=== PATIENT | male | born 1955 | race Caucasian/White ===

== ENCOUNTER 2017-01-08 11:51 | Emergency (ER) | payer OTHER ==
[~2017-01-08] VITALS: Ht 175.3 cm; Wt 103.3 kg
[~2017-01-08 11:51] MED LIST: ATOR-24 PO; CMD5 PO; GLC500 PO; HYDC25 PO; INSUINJ4 SQ; MULT-506 PO; OXYC5TAB PO; SITA100T3 PO
[2017-01-08 11:53] VITALS: TEMP 36.7; Ht 175.3 cm; Wt 103.3 kg
[2017-01-08] MEDS ORDERED: WARF5TAB90 PO (12:10)
[2017-01-08] MEDS ORDERED: SITA100T3 PO (12:10)
[2017-01-08] MEDS ORDERED: CMD10 PO (12:10)
[2017-01-08] MEDS ORDERED: HYDR25TA5 PO (12:10)
[2017-01-08] MEDS ORDERED: ATOR-24 PO (12:10)
[2017-01-08] MEDS ORDERED: INSDGIPEN SC (12:10)
[2017-01-08] MEDS ORDERED: METF1000 PO (12:10)
[2017-01-08] MEDS ORDERED: MULT-506 PO (12:10)
[2017-01-08] MEDS ORDERED: ACETAMINOPHEN 500 MG TAB PO STA (12:13)
--- NOTE | 2017-01-08 12:24 | EMERGENCY ROOM VISIT NOTE ---
ED Visit Note First contact with patient: 11:56 Chief Complaint: Left Knee Injury History of Present Illness: This patient is a 61-year-old male who presents to the Emergency Department by private vehicle for evaluation of their left Knee Injury approximately one hour ago. Patient states that they injured the knee while walking up a hill, states he twisted the knee with immediate pain. They report throbbing/aching pain over the anterior aspect of the knee. He has been able to walk on the knee, but pain is worse with ambulation. They deny any numbness or tingling into the distal extremity including the toes. They deny any pain extending into the affected foot or leg. Patient reports no previous fractures or surgeries of the affected knee. Patient rates current discomfort as a 6/10. Patient has tried no medication for their pain . Patient denies any associated injuries. He did not fall or hit his head. Medications: Reviewed in chart Allergies: Reviewed in chart PMH: Diabetes, hypertension, hyperlipidemia, DVT/PE SHx: Lives at home. Denies tobacco, alcohol, recreational drug use. ROS: All pertinent positive and negative review of systems are appropriately documented in the History of Present Illness. Physical Exam: VITAL SIGNS - Vital signs and nursing notes were reviewed. GENERAL - No acute distress and does not appear to be in pain. Well appearing and well nourished. Alert and oriented X 4 with normal affect. MUSCULOSKELETAL - The left knee is without erythema, edema, and ecchymosis. There is mild tenderness to palpation appreciated over the anterior inferior knee. 5/5 strength appreciated, no strength deficit noted secondary to patient discomfort. RANGE OF MOTION: Decreased Flexion with full normal Extension. PATELLAR APPREHENSION TEST: Negative. VARUS/VALGUS STRESS: Causes moderate pain. ROBERT'S TEST: Negative without guarding. Strong Endpoint. ANTERIOR/POSTERIOR DRAWER TEST: Negative without guarding. Strong endpoint. Ayaz TEST: Negative catching, popping, or snapping. NEUROLOGIC/VASCULAR - Neurovascularly intact distally with + 2 dorsalis pedis pulses palpated bilaterally. Normal sensation to light and sharp touch appreciated distally. IMAGING: LEFT KNEE 2 VIEWS HISTORY: Left knee pain. twisting injury, eval fx COMPARISON: Left femur 12/17/2015. FINDINGS: No acute fracture or dislocation within the left knee. Mild osteoarthritis within the medial compartment. Small joint effusion. Soft tissues are unremarkable. No radiopaque foreign bodies. IMPRESSION: No fractures. Small joint effusion. ED Course: Patient was seen and evaluated by myself. Differential diagnoses includes knee sprain, strain, ligamentous injury, fracture, dislocation, joint effusion. Patient was provided an ice pack for comfort. Patient was given Tylenol for their complaint of pain. INR level checked, this is therapeutic. X-rays were obtained of the affected knee. Imaging results as above. Images were discussed and reviewed with the patient who acknowledges understanding. Patient was provided a knee immobilizer, which he tolerated well. Patient educated on worrisome symptoms for return visit to the emergency department. Patient to follow-up with their primary care provided in 4-5 days if their symptoms are not improving. Patient discharged to home in good condition. Problem List Medical Problems: (1) Diabetes mellitus type 2 in nonobese Status: Chronic (2) Lower extremity deep venous thrombosis Status: Resolved (3) Pulmonary emboli Status: Resolved Surgical Problems: (1) H/O: vasectomy Status: Resolved (2) Hx of repair of rotator cuff Permanent Comment: bilat Status: Resolved Current/Historical Medications Scheduled Atorvastatin (Lipitor), 40 MG PO DAILY Hydrochlorothiazide (Hydrochlorothiazide), 25 MG PO DAILY Insulin Glargine (Lantus Solostar), 54 UNITS SC DAILY Metformin Hcl (Glucophage), 1,000 MG PO BID Multivitamin (Multivitamin), 1 TAB PO DAILY Sitagliptin Phosphate (Januvia), 100 MG PO DAILY Warfarin Sod (Coumadin), 10 MG PO 5XWK Warfarin Sodium (Coumadin), 5 MG PO 2XWK Allergies Coded Allergies: No Known Allergies (Verified , 07/24/15) Vital Signs Date Time Temp Pulse Resp B/P (MAP) Pulse Ox O2 Delivery O2 Flow Rate FiO2 01/08/17 14:26 85 16 98 01/08/17 13:50 72 18 145/76 96 Room Air 01/08/17 11:53 36.7 86 18 163/90 96 Room Air Laboratory Results Test 01/08/17 12:25 Prothrombin Time 21.6 SECONDS (9.0-12.0) Prothromb Time International Ratio 2.0 (0.9-1.1) Medications Administered Medications (Trade) Dose Ordered Sig/Nick Route Start Time Stop Time Status Last Admin Dose Admin Acetaminophen (Tylenol Tab) 1,000 mg NOW STAT PO 01/08/17 12:13 01/08/17 12:15 DC 01/08/17 12:13 1,000 MG Departure Information Impression Primary Impression: Left knee sprain Dispostion Home / Self-Care Condition GOOD Referrals Henry Peña III, M.D. (PCP) Agustín Rojas M.D. Patient Instructions ED Sprain Knee, [facility] Additional Instructions You have been treated in the Emergency Department for Knee Sprain. Regular strength (325mg/tab) Tylenol (acetaminophen) 2 tabs every 4-6 hours as needed for pain. Do not exceed 10 tablets in a 24 hour period. Avoid taking more than 3000 mg of Tylenol per day. This includes any other sources of acetaminophen you may take on a regular basis. If this is a recent injury (<24 hrs), ice can be applied to the area of pain for the first 3 days to help decrease pain and inflammation. Ice massages can be performed by freezing water in a paper cup, peeling back the cup to expose the ice and then massaging over the affected area. You have been provided the number for an Orthopaedic Surgeon. You should call this number as soon as possible to establish a follow-up visit from today's Emergency Department visit. You should also discuss your follow-up with workman's compensation to determine who they want you to see for follow-up. Wear the knee brace to your leg for comfort for the next few days. You may remove this for showers and sleep. Wear the splint until your pain is fully resolved, or until cleared by Orthopedics. Return to the Emergency Department if your current symptoms worsen despite treatment course outlined above. Problem Qualifiers Primary Impression: Left knee sprain Encounter type: initial encounter Involved ligament of knee: unspecified ligament Qualified Codes: S83.92XA - Sprain of unspecified site of left knee, initial encounter
--- NOTE | 2017-01-08 12:41 | DIAGNOSTIC IMAGING REPORT ---
LEFT KNEE 2 VIEWS HISTORY: Left knee pain. twisting injury, eval fx COMPARISON: Left femur 12/17/2015. FINDINGS: No acute fracture or dislocation within the left knee. Mild osteoarthritis within the medial compartment. Small joint effusion. Soft tissues are unremarkable. No radiopaque foreign bodies. IMPRESSION: No fractures. Small joint effusion. Electronically signed by: Obinna Rockwell M.D. 01/08/2017 12:40 PM Dictated Date/Time: 01/08/2017 12:39 PM
[2017-01-08 12:47] LABS: PROTHROMBIN TIME (PATIENT) 21.6 SECONDS (9.0-12.0)
[2017-01-08 13:50] VITALS: BP 145/76
[2017-01-08 14:26] VITALS: PULSE 85; O2SAT 98
== END 2017-01-08 14:27 | disposition home or self-care (01) ==
LOC: C.EDB 11:52 → C.EDD 14:27
DX: S83.92XA Sprain of unspecified site of left knee, initial encounter (principal); X50.9XXA Other and unspecified overexertion or strenuous movements or postures, initial encounter; Y93.01 Activity, walking, marching and hiking; Y99.0 Civilian activity done for income or pay; E11.9 Type 2 diabetes mellitus without complications; I10 Essential (primary) hypertension; E78.5 Hyperlipidemia, unspecified; Z86.718 Personal history of other venous thrombosis and embolism; Z86.711 Personal history of pulmonary embolism; Z98.52 Vasectomy status; Z79.4 Long term (current) use of insulin; Z79.84 Long term (current) use of oral hypoglycemic drugs; Z79.01 Long term (current) use of anticoagulants

== ENCOUNTER 2021-10-31 18:39 | Observation (INO) ==
[2021-10-31 19:37] LABS: Basophils # (auto) 0.05 K/uL (0-0.2); Basophils % (auto) 0.5 %; Eosinophils # (auto) 0.09 K/uL (0-0.50); Eosinophils % (auto) 0.9 %; Hematocrit (blood only) 40.6 % (40.1-51.0); Hemoglobin 13.2 g/dl (14.0-18.0); Immature Granulocytes # (auto) 0.02 K/uL (0.00-0.02); Immature Granulocytes % (auto) 0.2 %; Lymphocytes # (auto) 1.68 K/uL (1.2-3.4); Lymphocytes % (auto) 17.3 %; Mean Corpuscular Hemoglobin 30.5 pg (25.0-34.0); Mean Corpuscular Hgb Conc 32.5 g/dL (32.0-36.0); Mean Corpuscular Volume 93.8 fL (80.0-100.0); Monocytes % (auto) 7.2 %; Neutrophils # (auto) 7.15 K/uL (1.4-6.5); Neutrophils % (auto) 73.9 %; Platelet Count 214 K/uL (130-400); RDW Coefficient of Variation 12.5 % (11.5-14.5); Red Blood Count 4.33 M/uL (4.63-6.08); White Blood Count 9.69 K/ul (4.8-10.8)
[2021-10-31 19:58] LABS: Alanine Aminotransferase 29 U/L (7-52); Albumin Globulin Ratio 1.3 (0.9-2); Alkaline Phosphatase 68 U/L (34-104); Anion Gap 7 (3-11); Aspartate Aminotransferase 28 U/L (13-39); BUN Creatinine Ratio 25.2 (10-20); Blood Urea Nitrogen 31 mg/dl (6-23); Calcium 8.8 mg/dl (8.5-10.1); Carbon Dioxide 30 mmol/L (21-32); Chloride 101 mmol/L (98-107); Est GFR (African American) 69.5 ml/min; Est GFR (Non-African American) 59.9 ml/min; Globulin 3.1 gm/dl (2.5-4.0); Glucose 147 mg/dl (70-99(Fasting)); Potassium 3.4 mmol/L (3.5-5.1); Sodium 138 mmol/L (136-145); Total Protein 7.1 gm/dl (6.0-8.3)
[2021-10-31 20:03] LABS: INR 2.3 (0.9-1.1); Partial Thromboplastin Ratio 1.3; Partial Thromboplastin Time 34.5 Seconds (21.0-31.0); Prothrombin Time 23.8 Seconds (9.0-12.0)
[2021-10-31 20:04] LABS: Troponin I High Sensitivity 10.6 pg/ml (0-20)
[2021-10-31] MEDS ORDERED: NITROGLYCERIN SL 0.4 MG/TAB TAB SL STA (20:17)
[2021-10-31] MEDS ORDERED: ASPIRIN CHEW 324 MG PO STA (20:17)
--- NOTE | 2021-10-31 20:29 | XRay Report ---
XR chest 1V portable CLINICAL HISTORY: Chest Pain. COMPARISON STUDY: 07/24/2015 TECHNIQUE: 1 view of the chest FINDINGS: Single frontal view of the chest demonstrates the heart size to be mildly enlarged. The lungs are lorin ar of alveolar opacities. There is no evidence for pleural effusion. There is no evidence for vascula r congestion. There is no acute osseous pathology. IMPRESSION: 1. Mild cardiomegaly with no acute chest disease. ACT 112: Negative or not required by law. Electronically signed by: Alec Jones M.D. 10/31/2021 8:28 PM
[2021-10-31] MEDS ORDERED: SODIUM CHLORIDE 0.9% 1000ML 1,000 ML IV SCH (20:30)
[2021-10-31] MEDS ORDERED: POTASSIUM CHLORIDE CRTAB 20 MEQ TABCR PO STA (21:01)
[2021-10-31 21:43] LABS: Troponin I High Sensitivity 10.8 pg/ml (0-20)
[2021-10-31 21:46] LABS: Magnesium 1.8 mg/dl (1.7-2.4)
--- NOTE | 2021-10-31 22:00 | Emergency Department Note ---
History of Present Illness General Chief Complaint: Chest Pain Stated Complaint: HEART ISSUES Time Seen by Provider: 10/31/21 19:30 History of Present Illness Provider Complaint: chest pain Time: 18:00 Duration: improved Onset: during rest Pain Location: substernal Pain Radiation: LUE and neck Severity: moderate Maximum Pain Intensity: 8 Current Pain Intensity: 4 Quality: + heaviness Relieved By: + nitroglycerin Context: no recent illness, no recent surgery, no recent immobilization, no recent travel, no trauma/injury, no new medications or no history of DVT/PE Associated symptoms: no nausea, no vomiting, no diaphoresis, no dyspnea, no syncope, no palpitations, no fever, no cough or no leg swelling Treatments prior to arrival: nitroglycerin Home Medications Medication Instructions Recorded Confirmed Type atorvastatin 40 mg tablet 40 mg PO PM 09/18/18 10/31/21 History hydrochlorothiazide 25 mg tablet 25 mg PO DAILY 09/18/18 10/31/21 History metformin 1,000 mg tablet,extended 1,000 mg PO BID 09/18/18 10/31/21 History release 24hr pioglitazone 15 mg tablet (Actos) 15 mg PO DAILY 09/18/18 10/31/21 History warfarin 10 mg tablet 10 mg PO .6XSWEEK 09/18/18 10/31/21 History warfarin 5 mg tablet (Coumadin) 5 mg PO DIRECTED 09/18/18 10/31/21 History cyanocobalamin (vitamin B-12) 1,000 mcg PO DAILY 10/31/21 10/31/21 History 1,000 mcg tablet (Vitamin B-12) dulaglutide 0.75 mg/0.5 mL 0.75 mg subcut WE 10/31/21 10/31/21 History subcutaneous pen injector (Trulicity) indapamide 2.5 mg tablet 2.5 mg PO QAM 10/31/21 10/31/21 History insulin glargine-yfgn 100 unit/mL 52 unit subcut QPM 10/31/21 10/31/21 History (3 mL) subcutaneous pen (Semglee (insulin glargine-yfgn) Pen) multivitamin 1 tab PO DAILY 10/31/21 10/31/21 History omega-3 fatty acids 1,000 mg PO DAILY 10/31/21 10/31/21 History triamcinolone acetonide 0.1 % 1 applic topical BID .APPLY TO 10/31/21 10/31/21 History topical cream AFFECTED AREA Allergies Allergy/AdvReac Type Severity Reaction Status Date / Time No Known Allergies Allergy Unknown Verified 10/31/21 21:32 Past Med/Surg History Medical History Diabetes mellitus type 2 in nonobese HLD (hyperlipidemia) HTN (hypertension) Pulmonary emboli Surgical History H/O: vasectomy Hx of repair of rotator cuff "bilat" Social History Smoking Status: Never smoker Preferred Language: Slovak Feels Safe at Home: Yes Review of Systems A total of 10 systems reviewed and were otherwise negative Physical Exam Vital Signs Vital Signs - 24 hr 10/31/21 18:42 10/31/21 19:24 10/31/21 19:14 Temperature 36.9 C Temperature Source Temporal Artery Scan Pulse Rate 92 H Pulse Rate [Apical] 84 Pulse Rate from SpO2 Sensor Respiratory Rate 18 18 Respiratory Effort / Characteristics Non-Labored Spontaneous Blood Pressure 160/78 H Blood Pressure [Left Arm] 145/76 H Blood Pressure Mean 105 Blood Pressure Mean [Left Arm] 99 Blood Pressure Position Right Lateral Pulse Oximetry 97 96 96 Oxygen Delivery Method Room Air Room Air Room Air Sepsis Recent Fever Within 48 Hours No Sepsis New/Unexplained Change in Mental Status No Sepsis Action Taken by Nursing No Action Required 10/31/21 20:00 10/31/21 21:00 Temperature Temperature Source Pulse Rate 82 81 Pulse Rate [Apical] Pulse Rate from SpO2 Sensor 79 74 Respiratory Rate 20 18 Respiratory Effort / Characteristics Blood Pressure 141/86 H 133/76 Blood Pressure [Left Arm] Blood Pressure Mean 104 95 Blood Pressure Mean [Left Arm] Blood Pressure Position Pulse Oximetry 97 97 Oxygen Delivery Method Room Air Room Air Sepsis Recent Fever Within 48 Hours Sepsis New/Unexplained Change in Mental Status Sepsis Action Taken by Nursing Physical Exam GENERAL: He is oriented to person, place, and time. He appears well-developed and well-nourished. He does not appear distressed. HENT: Exam performed. - Head: Normocephalic and atraumatic. - Right Ear: External ear normal. No mastoid tenderness. - Left Ear: External ear normal. No mastoid tenderness. - Mouth/Throat: The oropharynx is clear and moist. No trismus in the jaw. No dental abscesses or uvula swelling. No oropharyngeal exudate or tonsillar abscesses. EYES: Conjunctivae and EOM are normal. Pupils are equal, round, and reactive to light. Right eye exhibits no discharge. Left eye exhibits no discharge. No scleral icterus. NECK: Normal range of motion. Neck supple. No JVD present. No spinous process tenderness present. No carotid bruit present. No rigidity. No tracheal deviation and normal range of motion present. No Brudzinski's sign and no Kernig's sign noted. CV: Normal rate, regular rhythm, normal heart sounds and intact distal pulses. There is no peripheral edema. Palpable radial pulses bue. PULM/CHEST: Effort normal and breath sounds normal. No respiratory distress. No stridor. He has no wheezes. He has no rales. - Chest Wall: He exhibits no tenderness. ABD: The abdomen is soft. Bowel sounds are normal. He has no distension. No mass is present. There is no tenderness. There is no rebound, no guarding, no Dailey's sign and no tenderness at McBurney's point. Rovsig negative. MUSC/SKEL: Normal range of motion. There is no peripheral edema, tenderness or deformity. LYMPH: No cervical adenopathy. NEURO: He is alert and oriented to person, place, and time. He has normal strength. No cranial nerve deficit or sensory deficit. Coordination and gait normal. GCS eye subscore is 4. GCS verbal subscore is 5. GCS motor subscore is 6. Cerebellar tests wnl. SKIN: Skin is warm and dry. He is not diaphoretic. PSYCH: He has a normal mood and affect. Behavior is normal. Judgment and thought content normal. Course Course 1929: The patient was evaluated in room A4. A complete history and physical exam was performed Cardiac monitoring: An order was placed for continuous cardiac monitoring. The monitor shows a rate of 90 with sinus rhythm 2049: Vital signs stable. Labs and imaging within normal limits. Patient has a moderate heart score patient will be admitted to the hospitalist team for chest pain rule out ACS Dr. Renteria notified. HEART Score for Major Cardiac Events from [employer] on 10/31/2021 All calculations should be rechecked by clinician prior to use RESULT SUMMARY: 5 points Moderate Score (4-6 points) Risk of MACE of 12-16.6%. INPUTS: History > 1 = Moderately suspicious EKG > 0 = Normal Age > 2 = >=5 Risk factors > 2 = >= risk factors or history of atherosclerotic disease Initial troponin > 0 = <=ormal limit Administered Medications Discontinued Medications Aspirin (Aspirin Chew 324 Mg) 324 mg PO NOW STA Stop: 10/31/21 20:18 Last Admin: 10/31/21 20:37 Dose: 324 mg Documented By: FANNY Sodium Chloride (Nss 1000ml) 1,000 mls @ 125 mls/hr IV .Q8H BEATRIZ Stop: 11/30/21 20:29 Last Admin: 10/31/21 21:20 Dose: Not Given Documented By: FANNY Nitroglycerin (Nitroglycerin Sl 0.4 Mg/Tab Tab) 0.4 mg SL NOW STA Stop: 10/31/21 20:18 Last Admin: 10/31/21 20:37 Dose: 0.4 mg Documented By: FANNY Potassium Chloride (Potassium Chloride Crtab 20 Meq Tabcr) 40 meq PO NOW STA Stop: 10/31/21 21:02 Last Admin: 10/31/21 21:31 Dose: 40 meq Documented By: FANNY Medical Decision Making Laboratory Data Result diagrams: 10/31/21 19:15 10/31/21 19:15 Labs: Lab Results 10/31/21 10/31/21 10/31/21 Range/Units 19:15 19:15 19:15 WBC 9.69 (4.8-10.8) K/ul RBC 4.33 L (4.63-6.08) M/uL Hgb 13.2 L (14.0-18.0) g/dl Hct 40.6 (40.1-51.0) % MCV 93.8 (80.0-100.0) fL MCH 30.5 (25.0-34.0) pg MCHC 32.5 (32.0-36.0) g/dL RDW Std Deviation 43.0 (36.4-46.3) fL RDW Coeff of Jana 12.5 (11.5-14.5) % Plt Count 214 (130-400) K/uL MPV 10.0 (9.4-12.4) fL Immature Gran % (Auto) 0.2 % Neut % (Auto) 73.9 % Lymph % (Auto) 17.3 % Gonzales % (Auto) 7.2 % Eos % (Auto) 0.9 % Baso % (Auto) 0.5 % Neut # (Auto) 7.15 H (1.4-6.5) K/uL Lymph # (Auto) 1.68 (1.2-3.4) K/uL Gonzales # (Auto) 0.70 (0.24-0.82) K/uL Eos # (Auto) 0.09 (0-0.50) K/uL Baso # (Auto) 0.05 (0-0.2) K/uL Immature Gran # (Auto) 0.02 (0.00-0.02) K/uL PT 23.8 H (9.0-12.0) Seconds INR 2.3 H (0.9-1.1) APTT 34.5 H (21.0-31.0) Seconds PTT Ratio 1.3 Sodium 138 (136-145) mmol/L Potassium 3.4 L (3.5-5.1) mmol/L Chloride 101 (98-107) mmol/L Carbon Dioxide 30 (21-32) mmol/L Anion Gap 7 (3-11) BUN 31 H (6-23) mg/dl Creatinine 1.23 (0.6-1.4) mg/dl Est Cr Clr Drug Dosing Not Reportable Est GFR ( Amer) 69.5 ml/min Est GFR (Non-Af Amer) 59.9 ml/min BUN/Creatinine Ratio 25.2 H (10-20) Glucose 147 H (70-99(Fasting)) mg/dl Calcium 8.8 (8.5-10.1) mg/dl Magnesium (1.7-2.4) mg/dl Total Bilirubin 1.0 (0.2-1.0) mg/dl AST 28 (13-39) U/L ALT 29 (7-52) U/L Alkaline Phosphatase 68 (34-104) U/L Troponin I High Sens 10.6 (0-20) pg/ml Total Protein 7.1 (6.0-8.3) gm/dl Albumin 4.0 (3.4-5.0) gm/dl Globulin 3.1 (2.5-4.0) gm/dl Albumin/Globulin Ratio 1.3 (0.9-2) // Range/Units 21:09 WBC (4.8-10.8) K/ul RBC (4.63-6.08) M/uL Hgb (14.0-18.0) g/dl Hct (40.1-51.0) % MCV (80.0-100.0) fL MCH (25.0-34.0) pg MCHC (32.0-36.0) g/dL RDW Std Deviation (36.4-46.3) fL RDW Coeff of Jana (11.5-14.5) % Plt Count (130-400) K/uL MPV (9.4-12.4) fL Immature Gran % (Auto) % Neut % (Auto) % Lymph % (Auto) % Gonzales % (Auto) % Eos % (Auto) % Baso % (Auto) % Neut # (Auto) (1.4-6.5) K/uL Lymph # (Auto) (1.2-3.4) K/uL Gonzales # (Auto) (0.24-0.82) K/uL Eos # (Auto) (0-0.50) K/uL Baso # (Auto) (0-0.2) K/uL Immature Gran # (Auto) (0.00-0.02) K/uL PT (9.0-12.0) Seconds INR (0.9-1.1) APTT (21.0-31.0) Seconds PTT Ratio Sodium (136-145) mmol/L Potassium (3.5-5.1) mmol/L Chloride (98-107) mmol/L Carbon Dioxide (21-32) mmol/L Anion Gap (3-11) BUN (6-23) mg/dl Creatinine (0.6-1.4) mg/dl Est Cr Clr Drug Dosing Est GFR ( Amer) ml/min Est GFR (Non-Af Amer) ml/min BUN/Creatinine Ratio (10-20) Glucose (70-99(Fasting)) mg/dl Calcium (8.5-10.1) mg/dl Magnesium 1.8 (1.7-2.4) mg/dl Total Bilirubin (0.2-1.0) mg/dl AST (13-39) U/L ALT (7-52) U/L Alkaline Phosphatase (34-104) U/L Troponin I High Sens 10.8 (0-20) pg/ml Total Protein (6.0-8.3) gm/dl Albumin (3.4-5.0) gm/dl Globulin (2.5-4.0) gm/dl Albumin/Globulin Ratio (0.9-2) Imaging Data Chest x-ray: Radiologist's impression: Chest X-Ray 10/31/21 19:26 XR chest 1V portable CLINICAL HISTORY: Chest Pain. COMPARISON STUDY: 07/24/2015 TECHNIQUE: 1 view of the chest FINDINGS: Single frontal view of the chest demonstrates the heart size to be mildly enlarged. The lungs are clear of alveolar opacities. There is no evidence for pleural effusion. There is no evidence for vascular congestion. There is no acute osseous pathology. IMPRESSION: 1. Mild cardiomegaly with no acute chest disease. ACT 112: Negative or not required by law. Electronically signed by: Alec Jones M.D. 10/31/2021 8:28 PM ECG Data Indication: chest pain Rate (beats per minute): 91 Rhythm: normal sinus Findings: no ST depression, no ST elevation or no prolonged QT MDM Narrative 1929: The patient was evaluated in room A4. A complete history and physical exam was performed Cardiac monitoring: An order was placed for continuous cardiac monitoring. The monitor shows a rate of 90 with sinus rhythm 2049: Vital signs stable. Labs and imaging within normal limits. Patient has a moderate heart score patient will be admitted to the hospitalist team for chest pain rule out ACS Dr. Renteria notified. HEART Score for Major Cardiac Events from [employer] on 10/31/2021 All calculations should be rechecked by clinician prior to use RESULT SUMMARY: 5 points Moderate Score (4-6 points) Risk of MACE of 12-16.6%. INPUTS: History > 1 = Moderately suspicious EKG > 0 = Normal Age > 2 = >=5 Risk factors > 2 = >= risk factors or history of atherosclerotic disease Initial troponin > 0 = <=ormal limit Impression & Plan Chest pain Discharge Plan Visit Data Chief Complaint: Chest Pain Stated Complaint: HEART ISSUES ED Provider: Randy Valentino Discharge Problem: Chest pain Patient Disposition: Being Evaluated by Hospitalist Forms Stand Alone Forms: My [facility] Prescriptions Prescriptions: No Action atorvastatin 40 mg Tablet 40 mg PO PM hydrochlorothiazide 25 mg Tablet 25 mg PO DAILY metformin 1,000 mg Tablet Extended Release 24hr 1,000 mg PO BID pioglitazone [Actos] 15 mg Tablet 15 mg PO DAILY warfarin 10 mg Tablet 10 mg PO .6XSWEEK Rx Instructions: takes everyday motuwethfrsa, take 5 mg every sun warfarin [Coumadin] 5 mg Tablet 5 mg PO DIRECTED Rx Instructions: takes on sun indapamide 2.5 mg tablet 2.5 mg PO QAM Trulicity 0.75 mg/0.5 mL pen injector 0.75 mg SUBCUT WE Rx Instructions: Take Q wed insulin glargine-yfgn [Semglee(insulin glarg-yfgn)Pen] 100 unit/mL (3 mL) insulin pen 52 unit SUBCUT QPM multivitamin Tablet 1 tab PO DAILY cyanocobalamin (vitamin B-12) [Vitamin B-12] 1,000 mcg Tablet 1,000 mcg PO DAILY triamcinolone acetonide 0.1 % Cream 1 applic TOPICAL BID Fish Oil Capsule 1,000 mg PO DAILY Referrals Referrals: Henry Peña MD [Primary Care Provider] -
--- NOTE | 2021-10-31 22:19 | History & Physical Report ---
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 after midnight until patient seen by cardiology in anticipation of procedure Replace potassium Basal insulin adjusted for n.p.o. status, ISS BG goal 1 10-1 40 DVT prophylaxis. Coumadin INR goal between 2 and 3 if okay with cardiology Full code Text document was generated using [employer] voice recognition software. It may contain grammatical or spelling errors. Kindly contact undersigned for clarification of any documentation item in question. History of Present Illness Chief Complaint: Chest pain Primary Care Provider: Henry Peña MD History obtained from patient and records. Last confinement 2015 under Orthopedics service for left finger surgery. Medical history significant for Recurrent PE/DVT on Coumadin, hyperlipidemia, DM2 insulin requiring, chronic anemia (baseline hemoglobin of 13) Patient was at work today when he experienced left-sided chest pain going to his neck and arm with shortness of breath and diaphoresis. Discomfort not relieved by nitroglycerin given by a coworker. No previous episodes as per patient. Patient brought to the ER by family for evaluation. Medical History as above Surgical History : Finger surgery, shoulder surgeries, vasectomy, Family History : Heart disease, stroke, DM, throat cancer Personal/Social history : Non-smoker, occasional EtOH intake, maintenance work Allergies Allergy/AdvReac Type Severity Reaction Status Date / Time No Known Allergies Allergy Unknown Verified 10/31/21 21:32 Home Medications Medication Instructions Recorded Confirmed Type atorvastatin 40 mg tablet 40 mg PO PM 09/18/18 10/31/21 History hydrochlorothiazide 25 mg tablet 25 mg PO DAILY 09/18/18 10/31/21 History metformin 1,000 mg tablet,extended 1,000 mg PO BID 09/18/18 10/31/21 History release 24hr pioglitazone 15 mg tablet (Actos) 15 mg PO DAILY 09/18/18 10/31/21 History warfarin 10 mg tablet 10 mg PO .6XSWEEK 09/18/18 10/31/21 History warfarin 5 mg tablet (Coumadin) 5 mg PO DIRECTED 09/18/18 10/31/21 History cyanocobalamin (vitamin B-12) 1,000 mcg PO DAILY 10/31/21 10/31/21 History 1,000 mcg tablet (Vitamin B-12) dulaglutide 0.75 mg/0.5 mL 0.75 mg subcut WE 10/31/21 10/31/21 History subcutaneous pen injector (Trulicity) indapamide 2.5 mg tablet 2.5 mg PO QAM 10/31/21 10/31/21 History insulin glargine-yfgn 100 unit/mL 52 unit subcut QPM 10/31/21 10/31/21 History (3 mL) subcutaneous pen (Semglee (insulin glargine-yfgn) Pen) multivitamin 1 tab PO DAILY 10/31/21 10/31/21 History omega-3 fatty acids 1,000 mg PO DAILY 10/31/21 10/31/21 History triamcinolone acetonide 0.1 % 1 applic topical BID .APPLY TO 10/31/21 10/31/21 History topical cream AFFECTED AREA Past Med/Surg History Medical History Diabetes mellitus type 2 in nonobese HLD (hyperlipidemia) HTN (hypertension) Pulmonary emboli Surgical History H/O: vasectomy Hx of repair of rotator cuff "bilat" Social History Smoking Status: Never smoker Second Hand Exposure: No; Do You Dip or Chew Tobacco: No; Tobacco Cessation Education Requested by Patient: No Hx Alcohol Use: No Hx Substance Use: No Preferred Language: Arabic 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 Beliefs That Will Affect Care: Jew Current Living Situation: Spouse Other Information That Helps Us Care for You: No Feels Safe at Home: Yes Safety Concerns: Feels Safe At This Time Assistive Devices: Glasses Review of Systems Review of Systems: As per HPI, all other systems reviewed and negative Physical Exam Physical Exam: GENERAL: Comfortable, pleasant, obese, no respiratory distress SKIN: Normal color, warm HEENT: Alopecia, Dennis palpebral conjunctivae, no ptosis, moist buccal mucosa NECK : Supple, short neck, no tenderness CHEST : CTA, no tenderness HEART : RRR, no obvious murmurs ABDOMEN: Some distention, nontender EXTREMITIES : No LE swelling/tenderness, no other conspicuous deformities noted NEUROLOGIC : Coherent, no facial asymmetry, no other gross focality Results & Data Results & Data ([facility]) Vital Signs (Past 12 Hours) Vital Signs Temp Pulse Pulse Resp BP BP Pulse Ox 10/31/21 21:00 81 18 133/76 97 10/31/21 20:00 82 20 141/86 H 97 10/31/21 19:14 84 18 145/76 H 96 10/31/21 19:24 96 10/31/21 18:42 36.9 C 92 H 18 160/78 H 97 O2 Del Method 10/31/21 21:00 Room Air 10/31/21 20:00 Room Air 10/31/21 19:14 Room Air 10/31/21 19:24 Room Air 10/31/21 18:42 Room Air Laboratory Results Laboratory Results WBC 9.69 K/ul (4.8-10.8) 10/31/21 19:15 RBC 4.33 M/uL (4.63-6.08) L 10/31/21 19:15 Hgb 13.2 g/dl (14.0-18.0) L 10/31/21 19:15 Hct 40.6 % (40.1-51.0) 10/31/21 19:15 MCV 93.8 fL (80.0-100.0) 10/31/21 19:15 MCH 30.5 pg (25.0-34.0) 10/31/21 19:15 MCHC 32.5 g/dL (32.0-36.0) 10/31/21 19:15 RDW Std Deviation 43.0 fL (36.4-46.3) 10/31/21 19:15 RDW Coeff of Jana 12.5 % (11.5-14.5) 10/31/21 19:15 Plt Count 214 K/uL (130-400) 10/31/21 19:15 MPV 10.0 fL (9.4-12.4) 10/31/21 19:15 Immature Gran % (Auto) 0.2 % 10/31/21 19:15 Neut % (Auto) 73.9 % 10/31/21 19:15 Lymph % (Auto) 17.3 % 10/31/21 19:15 Ness % (Auto) 7.2 % 10/31/21 19:15 Eos % (Auto) 0.9 % 10/31/21 19:15 Baso % (Auto) 0.5 % 10/31/21 19:15 Neut # (Auto) 7.15 K/uL (1.4-6.5) H 10/31/21 19:15 Lymph # (Auto) 1.68 K/uL (1.2-3.4) 10/31/21 19:15 Ness # (Auto) 0.70 K/uL (0.24-0.82) 10/31/21 19:15 Eos # (Auto) 0.09 K/uL (0-0.50) 10/31/21 19:15 Baso # (Auto) 0.05 K/uL (0-0.2) 10/31/21 19:15 Immature Gran # (Auto) 0.02 K/uL (0.00-0.02) 10/31/21 19:15 PT 23.8 Seconds (9.0-12.0) H 10/31/21 19:15 INR 2.3 (0.9-1.1) H 10/31/21 19:15 APTT 34.5 Seconds (21.0-31.0) H 10/31/21 19:15 PTT Ratio 1.3 10/31/21 19:15 Sodium 138 mmol/L (136-145) 10/31/21 19:15 Potassium 3.4 mmol/L (3.5-5.1) L 10/31/21 19:15 Chloride 101 mmol/L (98-107) 10/31/21 19:15 Carbon Dioxide 30 mmol/L (21-32) 10/31/21 19:15 Anion Gap 7 (3-11) 10/31/21 19:15 BUN 31 mg/dl (6-23) H 10/31/21 19:15 Creatinine 1.23 mg/dl (0.6-1.4) 10/31/21 19:15 Est Cr Clr Drug Dosing Not Reportable 10/31/21 19:15 Est GFR ( Amer) 69.5 ml/min 10/31/21 19:15 Est GFR (Non-Af Amer) 59.9 ml/min 10/31/21 19:15 BUN/Creatinine Ratio 25.2 (10-20) H 10/31/21 19:15 Glucose 147 mg/dl (70-99(Fasting)) H 10/31/21 19:15 Calcium 8.8 mg/dl (8.5-10.1) 10/31/21 19:15 Magnesium 1.8 mg/dl (1.7-2.4) 10/31/21 21:09 Total Bilirubin 1.0 mg/dl (0.2-1.0) 10/31/21 19:15 AST 28 U/L (13-39) 10/31/21 19:15 ALT 29 U/L (7-52) 10/31/21 19:15 Alkaline Phosphatase 68 U/L (34-104) 10/31/21 19:15 Troponin I High Sens 10.8 pg/ml (0-20) 10/31/21 21:09 Total Protein 7.1 gm/dl (6.0-8.3) 10/31/21 19:15 Albumin 4.0 gm/dl (3.4-5.0) 10/31/21 19:15 Globulin 3.1 gm/dl (2.5-4.0) 10/31/21 19:15 Albumin/Globulin Ratio 1.3 (0.9-2) 10/31/21 19:15 Impressions Chest X-Ray 10/31/21 19:26 XR chest 1V portable CLINICAL HISTORY: Chest Pain. COMPARISON STUDY: 07/24/2015 TECHNIQUE: 1 view of the chest FINDINGS: Single frontal view of the chest demonstrates the heart size to be mildly enlarged. The lungs are clear of alveolar opacities. There is no evidence for pleural effusion. There is no evidence for vascular congestion. There is no acute osseous pathology. IMPRESSION: 1. Mild cardiomegaly with no acute chest disease. ACT 112: Negative or not required by law. Electronically signed by: Alec Jones M.D. 10/31/2021 8:28 PM Diagnostic Findings EKG as per my interpretation:Rate 90, NSR, normal axis, no ischemia (1) Chest pain Chest pain type: unspecified Qualified Code(s): R07.9 - Chest pain, unspecified
[2021-11-01] MEDS ORDERED: ATORVASTATIN 40 MG TAB PO SCH (00:42)
[2021-11-01] MEDS ORDERED: traMADol HCL 50 MG TABLET PO PRN (00:42)
[2021-11-01] MEDS ORDERED: NITROGLYCERIN SL 0.4 MG/TAB TAB SL PRN (00:42)
[2021-11-01] MEDS ORDERED: GLUCOSE 10 TAB/TUBE PO PRN (00:42)
[2021-11-01] MEDS ORDERED: CARBOHYDRATES FOR HYPOGLYCEMIA PO PRN (00:42)
[2021-11-01] MEDS ORDERED: LORazepam 0.5 MG in SYRINGE 0.25 ML IV PRN (00:42)
[2021-11-01] MEDS ORDERED: ACETAMINOPHEN 325 MG TAB PO PRN (00:42)
[2021-11-01] MEDS ORDERED: GLUCOSE 40% GEL 15 GM TUBE PO PRN (00:42)
[2021-11-01] MEDS ORDERED: MoRPHine SULFATE 4 MG/ML 1 ML CARP\\VIAL IV PRN (00:42)
[2021-11-01] MEDS ORDERED: DEXTROSE 50% 50 ML SYRINGE IV PRN (00:42)
[2021-11-01] MEDS ORDERED: GLUCAGON FOR INJ 1 MG VIAL SQ PRN (00:42)
[2021-11-01] MEDS ORDERED: LACTATED RINGER'S 1,000 ML IV ONE (00:42)
[2021-11-01] MEDS: INSULIN ASPART PER UNIT SC SCH ×3 (02:08→12:03)
[2021-11-01] MEDS ORDERED: LANTUS PER UNIT CHARGE SQ STA (02:41)
[2021-11-01 06:05] LABS: Basophils # (auto) 0.04 K/uL (0-0.2); Basophils % (auto) 0.6 %; Eosinophils # (auto) 0.15 K/uL (0-0.50); Eosinophils % (auto) 2.2 %; Hematocrit (blood only) 37.4 % (40.1-51.0); Hemoglobin 12.4 g/dl (14.0-18.0); Immature Granulocytes # (auto) 0.02 K/uL (0.00-0.02); Immature Granulocytes % (auto) 0.3 %; Lymphocytes # (auto) 1.77 K/uL (1.2-3.4); Lymphocytes % (auto) 26.2 %; Mean Corpuscular Hemoglobin 30.8 pg (25.0-34.0); Mean Corpuscular Hgb Conc 33.2 g/dL (32.0-36.0); Mean Corpuscular Volume 92.8 fL (80.0-100.0); Mean Platelet Volume 9.6 fL (9.4-12.4); Monocytes # (auto) 0.64 K/uL (0.24-0.82); Monocytes % (auto) 9.5 %; Neutrophils # (auto) 4.13 K/uL (1.4-6.5); Neutrophils % (auto) 61.2 %; Platelet Count 176 K/uL (130-400); RDW Coefficient of Variation 12.5 % (11.5-14.5); RDW Standard Deviation 42.9 fL (36.4-46.3); Red Blood Count 4.03 M/uL (4.63-6.08); White Blood Count 6.75 K/ul (4.8-10.8)
[2021-11-01 06:20] LABS: Calcium 8.5 mg/dl (8.5-10.1); Potassium 3.6 mmol/L (3.5-5.1)
[2021-11-01 06:26] LABS: BUN Creatinine Ratio 25.5 (10-20); Chol HDL Ratio 3.6 (0-5); Est GFR (African American) 87.1 ml/min; Est GFR (Non-African American) 75.2 ml/min
[2021-11-01 06:46] LABS: INR 2.6 (0.9-1.1); Prothrombin Time 25.9 Seconds (9.0-12.0)
[2021-11-01] MEDS ORDERED: CYANOCOBALAMIN (B-12) 500 MCG TABLET PO SCH (09:00)
[2021-11-01] MEDS ORDERED: MULTIVITAMIN TAB PO SCH (09:00)
[2021-11-01] MEDS ORDERED: LANTUS PER UNIT CHARGE SQ SCH (09:00)
[2021-11-01] MEDS ORDERED: ASPIRIN 81 MG ECTAB PO SCH (09:00)
[2021-11-01] MEDS ORDERED: LOSARTAN POTASSIUM 50 MG TAB PO SCH (11:00)
--- NOTE | 2021-11-01 11:17 | Cardiology Consultation ---
Date of Consultation November 01, 2021 Assessment & Plan (1) Chest pain: (2) HTN (hypertension): (3) HLD (hyperlipidemia): (4) Pulmonary emboli: (5) Lower extremity deep venous thrombosis: (6) Diabetes mellitus type 2 in nonobese: Plan Musculoskeletal chest pain nonischemic exercise stress echo Hypertensive BP response to exercise Not on UVALDO or BENEDICT despite hx of DM2? will start losartan 50mg po daily also recommend asa 81mg daily for primary prevention ok to d/c to home no cardiac f/u necessary History of Present Illness Reason for Consultation: chest pain Requesting Physician: MONICA Attending Physician: Mark Hutchison MD Allergies Allergy/AdvReac Type Severity Reaction Status Date / Time No Known Allergies Allergy Unknown Verified 10/31/21 21:32 Home Medications Medication Instructions Recorded Confirmed Type atorvastatin 40 mg tablet 40 mg PO PM 09/18/18 10/31/21 History hydrochlorothiazide 25 mg tablet 25 mg PO DAILY 09/18/18 10/31/21 History metformin 1,000 mg tablet,extended 1,000 mg PO BID 09/18/18 10/31/21 History release 24hr pioglitazone 15 mg tablet (Actos) 15 mg PO DAILY 09/18/18 10/31/21 History warfarin 10 mg tablet 10 mg PO .6XSWEEK 09/18/18 10/31/21 History warfarin 5 mg tablet (Coumadin) 5 mg PO DIRECTED 09/18/18 10/31/21 History cyanocobalamin (vitamin B-12) 1,000 mcg PO DAILY 10/31/21 10/31/21 History 1,000 mcg tablet (Vitamin B-12) dulaglutide 0.75 mg/0.5 mL 0.75 mg subcut WE 10/31/21 10/31/21 History subcutaneous pen injector (Trulicity) indapamide 2.5 mg tablet 2.5 mg PO QAM 10/31/21 10/31/21 History insulin glargine-yfgn 100 unit/mL 52 unit subcut QPM 10/31/21 10/31/21 History (3 mL) subcutaneous pen (Semglee (insulin glargine-yfgn) Pen) multivitamin 1 tab PO DAILY 10/31/21 10/31/21 History omega-3 fatty acids 1,000 mg PO DAILY 10/31/21 10/31/21 History triamcinolone acetonide 0.1 % 1 applic topical BID .APPLY TO 10/31/21 10/31/21 History topical cream AFFECTED AREA Patient History Medical History Diabetes mellitus type 2 in nonobese HLD (hyperlipidemia) HTN (hypertension) Pulmonary emboli Surgical History H/O: vasectomy Hx of repair of rotator cuff "bilat" Social History Smoking Status: Never smoker Second Hand Exposure: No; Do You Dip or Chew Tobacco: No; Tobacco Cessation Education Requested by Patient: No Hx Alcohol Use: No Hx Substance Use: No Preferred Language: Hungarian 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 No acute distress. HEENT: Normocephalic, atraumatic. Pupils equal, round and reactive to light and accommodation. Extraocular muscles are intact. Anicteric sclera. Moist mucous membranes. Neck: No JVD. No bruit. Cardiovascular: Regular. No S-4. Normal S-1 and S-2. No S-3. No murmurs, rubs or gallops. Pulmonary: Clear to auscultation bilaterally. No rales, rhonchi, or wheezing. Abdomen: Bowel sounds x 4, soft. No rebound, guarding or tenderness. No organomegaly. Extremities: No clubbing, cyanosis or edema. +2 pedal pulses bilaterally. Skin: Warm and dry. Musculoskeletal: Direct palpation of the L 4th rib, reproduced the pain Results & Data ([facility]) Vital Signs (Past 12 Hours) Vital Signs Temp Pulse Pulse Resp BP BP Pulse Ox 11/01/21 11:02 36.4 C L 79 19 132/76 98 11/01/21 07:00 89 11/01/21 07:15 36.4 C L 64 18 151/79 H 97 11/01/21 03:54 36.6 C 67 15 127/76 97 11/01/21 00:42 36.5 C 78 20 175/78 H 96 10/31/21 23:41 70 16 120/73 96 O2 Del Method 11/01/21 11:02 Room Air 11/01/21 07:00 11/01/21 07:15 Room Air 11/01/21 03:54 Room Air 11/01/21 00:42 Room Air 10/31/21 23:41 Room Air (1) Chest pain Chest pain type: unspecified Qualified Code(s): R07.9 - Chest pain, unspecified
--- NOTE | 2021-11-01 13:53 | Electrocardiogram Report ---
Test Reason : Blood Pressure : / mmHG Vent. Rate : 091 BPM Atrial Rate : 091 BPM P-R Int : 146 ms QRS Dur : 096 ms QT Int : 390 ms P-R-T Axes : 032 004 032 degrees QTc Int : 479 ms Normal sinus rhythm Normal ECG When compared with ECG of 24-JUL-2015 13:31, No significant change was found Confirmed by Hank Moreno ([id number]) on 11/01/2021 1:52:52 PM Referred By: REFERRED SELF Confirmed By:Hank Moreno
--- NOTE | 2021-11-01 14:14 | Electrocardiogram Report ---
Test Reason : Blood Pressure : / mmHG Vent. Rate : 071 BPM Atrial Rate : 071 BPM P-R Int : 142 ms QRS Dur : 104 ms QT Int : 420 ms P-R-T Axes : 005 003 030 degrees QTc Int : 457 ms Sinus rhythm with Premature atrial complexes Prolonged QT Abnormal ECG When compared with ECG of 31-OCT-2021 18:43, (unconfirmed) Premature atrial complexes are now Present Confirmed by Hank Moreno ([id number]) on 11/01/2021 2:14:04 PM Referred By: REFERRED SELF Confirmed By:Hank Moreno
--- NOTE | 2021-11-01 14:54 | Discharge Summary ---
Date of Service November 01, 2021 Admission HPI Per Admitting Provider History obtained from patient and records. Last confinement 2015 under Orthopedics service for left finger surgery. Medical history significant for Recurrent PE/DVT on Coumadin, hyperlipidemia, DM2 insulin requiring, chronic anemia (baseline hemoglobin of 13) Patient was at work today when he experienced left-sided chest pain going to his neck and arm with shortness of breath and diaphoresis. Discomfort not relieved by nitroglycerin given by a coworker. No previous episodes as per patient. Patient brought to the ER by family for evaluation. Medical History as above Surgical History : Finger surgery, shoulder surgeries, vasectomy, Family History : Heart disease, stroke, DM, throat cancer Personal/Social history : Non-smoker, occasional EtOH intake, maintenance work Discharge Data Allergies Allergy/AdvReac Type Severity Reaction Status Date / Time No Known Allergies Allergy Unknown Verified 10/31/21 21:32 Consultations 10/31/21 20:50 ED Decision to Admit Stat 11/01/21 00:42 Consult Cardiology Routine Hospital Course (1) Chest pain: Relieved by nitroglycerin Rule out ACS given risk factors for ischemic heart disease Recurrent PE/DVT on Coumadin, INR therapeutic hyperlipidemia, on statin Rx DM2 insulin requiring, suboptimal control as of recent hemoglobin A1c of 9.13 Aug 2021 Chronic anemia, hemoglobin at baseline Hypokalemia secondary to diuretic RX OBS PCU Aspirin for CAD prevention until ACS ruled out Follow troponin Cardiology consult Re: Chest pain N.p.o. after midnight until patient seen by cardiology in anticipation of procedure Replace potassium Basal insulin adjusted for n.p.o. status, ISS BG goal 1 10-1 40 DVT prophylaxis. Coumadin INR goal between 2 and 3 if okay with cardiology Full code Text document was generated using [employer] voice recognition software. It may contain grammatical or spelling errors. Kindly contact undersigned for clarification of any documentation item in question. Discharge Plan Discharge Items Patient Disposition: Home - Self-Care Reason For Visit: CP Discharge Diagnosis: Chest pain Activity: Resume your previous activity Non-emergency contact: Primary Care Provider Call non-emergency contact if: you have any medication questions Follow-up/Referrals: Henry Peña MD [Primary Care Provider] - (Date & Time 11/08/2021 11:00 AM Provider Henry Peña III, MD [facility] ) Diet: Carb Consistent or DM2 Addtl Attending Provider Instructions: Follow up with your primary care provider Dr. Peña Monitor for any abnormal bleeding while on Coumadin and aspirin Continue follow up with the Coumadin clinic to monitor your PT/INR Check BMP in 5 to 7 days while taking Losartan to monitor your kidney function and electrolytes Continue monitor your blood pressure Seek medical attention if your symptoms reoccur Pending Studies at Discharge: No Stand-Alone Forms: [id number], Work/School Release, Smoking Cessation Medications and DC Order Prescriptions: New losartan 50 mg Tablet 50 mg PO QAM 30 Days Qty: 30 0RF aspirin 81 mg Tablet,Delayed Release (Dr/Ec) 81 mg PO QAM 30 Days Qty: 30 0RF Continued atorvastatin 40 mg Tablet 40 mg PO PM hydrochlorothiazide 25 mg Tablet 25 mg PO DAILY metformin 1,000 mg Tablet Extended Release 24hr 1,000 mg PO BID pioglitazone [Actos] 15 mg Tablet 15 mg PO DAILY warfarin 10 mg Tablet 10 mg PO .6XSWEEK Rx Instructions: takes everyday motuwethfrsa, take 5 mg every sun warfarin [Coumadin] 5 mg Tablet 5 mg PO DIRECTED Rx Instructions: takes on sun indapamide 2.5 mg tablet 2.5 mg PO QAM Trulicity 0.75 mg/0.5 mL pen injector 0.75 mg SUBCUT WE Rx Instructions: Take Q wed insulin glargine-yfgn [Semglee(insulin glarg-yfgn)Pen] 100 unit/mL (3 mL) insulin pen 52 unit SUBCUT QPM multivitamin Tablet 1 tab PO DAILY cyanocobalamin (vitamin B-12) [Vitamin B-12] 1,000 mcg Tablet 1,000 mcg PO DAILY triamcinolone acetonide 0.1 % Cream 1 applic TOPICAL BID Fish Oil Capsule 1,000 mg PO DAILY Discharge Orders: Discharge Order (Routine); Ordered 11/01/21 Ordered By: Mark Hutchison Admission Data Admit Date/Time: 10/31/21 22:22 Attending Provider: Mark Hutchison Admit Provider: Yonatan Richard Primary Care Provider: Henry Peña Other Providers: Yonatan Richard ; Jay Soria ; Agustín Bronson ; Donavon Ivey ; Jamie Bonilla ; Kurt Vallecillo ; Don Zhang ; Yazmin Oliver ; Sandra Joel ; Lissy Charlton. ; William Dowd
[2021-11-01] MEDS ORDERED: LANTUS PER UNIT CHARGE SQ ONE (23:00)
== END 2021-11-01 16:09 | disposition home or self-care (01) ==
LOC: ED 18:39 → INTOOBSV 22:22 → 2S 11-01